=== PATIENT | female | born 1960 ===

== ENCOUNTER 2017-12-29 15:34 | Emergency (ER) | payer OTHER ==
[~2017-12-29] VITALS: Ht 165.1 cm; Wt 83.0 kg
[~2017-12-29 15:34] MED LIST: BIAXIN XL500 MG; HYZAAR 100-121 UDTAB; OSEL75CA PO; PHENERGAN25 MG; PREDNISONE5 GM; QVAR7.3 G1; SINGULAIR4 MG; XOPENEX HFA15 GM IH
== END 2017-12-29 18:58 | disposition home or self-care (01) ==
LOC: ER 15:34
DX: J06.9 Acute upper respiratory infection, unspecified (principal)

== ENCOUNTER 2018-10-07 12:16 | Emergency (ER) | payer OTHER ==
[~2018-10-07] VITALS: Ht 165.1 cm; Wt 83.0 kg
[2018-10-07] MEDS ORDERED: EFFEXOR XR75 MG (13:02)
== END 2018-10-07 14:38 | disposition home or self-care (01) ==
LOC: ER 12:16
DX: R07.89 Other chest pain (principal); R53.1 Weakness; T43.215A Adverse effect of selective serotonin and norepinephrine reuptake inhibitors, initial encounter; Y92.89 Other specified places as the place of occurrence of the external cause

== ENCOUNTER 2025-02-03 08:24 | Outpatient (CLI) | payer OTHER ==
[~2025-02-03 08:24] MED LIST changes: +EFFEXOR XR75 MG
== END 2025-02-03 08:29 | disposition home or self-care (01) ==
LOC: SONOGRAMA 08:24
PROVIDERS: ATTEND Internal Medicine
DX: R22.42 Localized swelling, mass and lump, left lower limb (principal)